=== PATIENT | male | born 1990 | race Caucasian/White ===

== ENCOUNTER 2021-08-01 11:11 | Emergency (ER) | payer BC ==
[~2021-08-01] VITALS: Ht 182.9 cm; Wt 99.8 kg
[2021-08-01 11:11] VITALS: BP_SYST 105
[2021-08-01] MEDS ORDERED: DIPH-TET-PERTUS Vaccine 0.5 ML VIAL (ADACEL) I.M. ONE (11:30)
[2021-08-01] MEDS ORDERED: BACITRACIN 1 GM OINT TP ONE (11:30)
[2021-08-01] MEDS ORDERED: AMOX-423 PO (11:32)
== END 2021-08-01 12:53 | disposition home or self-care (01) ==
LOC: SED 11:11
DX: S81.052A Open bite, left knee, initial encounter (principal); Y04.1XXA Assault by human bite, initial encounter; Y93.89 Activity, other specified; Y92.89 Other specified places as the place of occurrence of the external cause; Y99.8 Other external cause status
CPT/HCPCS: 90715; 99283

== ENCOUNTER 2022-02-27 16:14 | Emergency (ER) | payer BC ==
[~2022-02-27] VITALS: Ht 177.8 cm; Wt 90.7 kg
[~2022-02-27 16:14] MED LIST: AMOX-423 PO
[2022-02-27 17:27] VITALS: BP_SYST 120
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
--- NOTE | 2022-02-27 17:56 | NUR ---
Patient to ER bed 01 to gown for evaluation. Side rails up.
--- NOTE | 2022-02-27 18:12 | NUR ---
ER at bedside examining patient.
--- NOTE | 2022-02-27 18:12 | NUR ---
Edp at bedside for initial assessment.
[2022-02-27] MEDS ORDERED: AUG875 PO (18:33)
[2022-02-27] MEDS ORDERED: IBUP800T54 PO (18:33)
--- NOTE | 2022-02-27 18:46 | NUR ---
Patient given written and verbal discharge instructions and verbalizes understanding. ER MD discussed with patient the results and treatment provided. Patient in stable condition. ID arm band removed. IV catheter removed intact and dressing applied, no active bleeding. Rx of augmentin/motrin given. Patient educated on pain management and to follow up with PMD. Pain Scale 0. Opportunity for questions provided and answered. Medication side effect fact sheet provided.
== END 2022-02-27 18:45 | disposition home or self-care (01) ==
LOC: SED 16:14
DX: S51.851A Open bite of right forearm, initial encounter (principal); Z79.899 Other long term (current) drug therapy; Y04.1XXA Assault by human bite, initial encounter; Y93.89 Activity, other specified; Y92.89 Other specified places as the place of occurrence of the external cause; Y99.8 Other external cause status
CPT/HCPCS: 99283

== ENCOUNTER 2022-07-11 18:27 | Emergency (ER) | payer BC ==
[~2022-07-11] VITALS: Ht 180.3 cm; Wt 77.1 kg
[~2022-07-11 18:27] MED LIST changes: +AUG875 PO; +IBUP800T54 PO
[2022-07-11 18:55] VITALS: BP_SYST 116
--- NOTE | 2022-07-11 19:17 | NUR ---
DR RANDALL AT BEDSIDE FOR EVALUATION AND ORDERS.
[2022-07-11 19:24] LABS: BASOPHILS % (AUTO) 0.2 % (0.0-2.0); EOSINOPHILS # (AUTO) 0.1 K/uL (0.0-0.4); EOSINOPHILS % (AUTO) 0.6 % (0.0-4.0); HEMATOCRIT 45.3 % (36-54); HEMOGLOBIN 14.7 g/dL (14.0-18.0); LYMPHOCYTES # (AUTO) 0.7 K/uL (1.0-5.5); LYMPHOCYTES % (AUTO) 6.2 % (20.5-51.5); MEAN CORPUSCULAR HEMOGLOBIN 28 pg (27-31); MEAN CORPUSCULAR HGB CONC 32 % (32-36); MEAN CORPUSCULAR VOLUME 86 fL (79.0-98.0); MONOCYTES # (AUTO) 0.5 K/uL (0.0-1.0); MONOCYTES % (AUTO) 4.6 % (1.7-9.3); NEUTROPHILS # (AUTO) 10.4 K/uL (1.8-7.7); NEUTROPHILS % (AUTO) 88.4 % (40.0-70.0); PLATELET COUNT (AUTO) 152 K/uL (130-430); RED BLOOD CELL COUNT(AUTO) 5.29 MIL/uL (4.2-6.2); RED CELL DISTRIBUTION WIDTH 13.8 % (9.0-15.0); WHITE BLOOD COUNT (AUTO) 11.8 K/uL (4.8-10.8)
[2022-07-11 19:40] VITALS: BP_SYST 122
[2022-07-11 19:49] LABS: ANION GAP 8 (5-15); CALCIUM 8.2 mg/dL (8.4-11.0); CHLORIDE 108 mmol/L (98-107); CREATININE 0.76 mg/dL (0.55-1.30); GFR AFRICAN AMERICAN 151 mL/min (>90); GLUCOSE 131 mg/dL (70-99); UREA NITROGEN, BLOOD 17 mg/dL (8-21)
[2022-07-11 19:53] LABS: ALANINE AMINOTRANSFERASE 42 U/L (12-78); ALBUMIN 3.5 g/dL (3.4-4.8); AMYLASE 44 U/L (0-100); ASPARTATE AMINOTRANSFERASE 25 U/L (10-37); C-REACTIVE PROTEIN QUANT 0.2 mg/dL (0-0.5); LIPASE 189 U/L (73-393); TOTAL BILIRUBIN 0.4 mg/dL (0.0-1.0)
--- NOTE | 2022-07-11 19:58 | NUR ---
MIDSTREAM URINE COLLECTED AND SENT TO LAB
[2022-07-11 20:06] LABS: ACETONE, SERUM NEGATIVE (NEGATIVE)
[2022-07-11 20:24] LABS: BILIRUBIN,URINE NEGATIVE (NEGATIVE); BLOOD, URINE NEGATIVE (NEGATIVE); CLARITY/URINE CLEAR (CLEAR); COLOR,URINE YELLOW (YELLOW); GLUCOSE,URINE NEGATIVE (NEGATIVE); KETONES,URINE TRACE (NEGATIVE); LEUKOCYTE ESTERASE ,URINE NEGATIVE (NEGATIVE); NITRITE, URINE NEGATIVE (NEGATIVE); PH,URINE 7.5 (5.0-8.0); PROTEIN URINE TRACE (NEGATIVE)
[2022-07-11] MEDS ORDERED: ONDA-8 TL (20:43)
[2022-07-11] MEDS ORDERED: ONDANSETRON 4 MG ODT TAB PO ONE (20:45)
--- NOTE | 2022-07-11 20:58 | NUR ---
Patient given written and verbal discharge instructions and verbalizes understanding. DANIEL RANDALL MD discussed with patient the results and treatment provided. Patient in stable condition. ID arm band removed. Rx of given. Patient educated on pain management and to follow up with PMD. Pain Scale 0. Opportunity for questions provided and answered. Medication side effect fact sheet provided.
== END 2022-07-11 20:50 | disposition home or self-care (01) ==
LOC: SED 18:27
DX: R11.2 Nausea with vomiting, unspecified (principal); R63.0 Anorexia; Z79.899 Other long term (current) drug therapy
CPT/HCPCS: 36415; 76376; 80053; 81003; 82009; 82150; 83605; 83690; 85025; 86140; 99284